=== PATIENT | male | born 1995 | race Caucasian/White ===

== ENCOUNTER 2023-11-15 10:49 | Emergency (ER) | payer MEDICAID ==
[~2023-11-15] VITALS: Ht 185.4 cm; Wt 108.0 kg
[2023-11-15 11:49] VITALS: BP_SYST 170; PULSE 75; RESP 22; TEMP 98.9; O2SAT 99
[2023-11-15 12:23] LABS: BASOPHILS % (AUTO) 0.4 % (0.0-2.0); EOSINOPHILS # (AUTO) 0.1 K/uL (0.0-0.4); EOSINOPHILS % (AUTO) 1.2 % (0.0-4.0); HEMATOCRIT 41.6 % (36-54); HEMOGLOBIN 14.9 g/dL (14.0-18.0); LYMPHOCYTES # (AUTO) 1.4 K/uL (1.0-5.5); LYMPHOCYTES % (AUTO) 24.1 % (20.5-51.5); MEAN CORPUSCULAR HEMOGLOBIN 31 pg (27-31); MEAN CORPUSCULAR HGB CONC 36 % (32-36); MEAN CORPUSCULAR VOLUME 86 fL (79.0-98.0); MONOCYTES # (AUTO) 0.2 K/uL (0.0-1.0); MONOCYTES % (AUTO) 3.8 % (1.7-9.3); NEUTROPHILS % (AUTO) 70.5 % (40.0-70.0); PLATELET COUNT (AUTO) 287 K/uL (130-430); RED BLOOD CELL COUNT(AUTO) 4.84 MIL/uL (4.2-6.2); RED CELL DISTRIBUTION WIDTH 13.1 % (9.0-15.0); WHITE BLOOD COUNT (AUTO) 5.7 K/uL (4.8-10.8)
[2023-11-15 12:39] LABS: CALCIUM 9.5 mg/dL (8.4-11.0); CREATININE 0.84 mg/dL (0.55-1.30); POTASSIUM 4.3 mmol/L (3.5-5.1)
[2023-11-15 12:44] LABS: ALBUMIN 4.2 g/dL (3.4-4.8); TOTAL BILIRUBIN 0.4 mg/dL (0.0-1.0); TOTAL PROTEIN, SERUM 7.8 g/dL (6.4-8.3)
[2023-11-15] MEDS ORDERED: FAMOTIDINE 20 MG TABLET PO ONE (12:45)
[2023-11-15] MEDS ORDERED: ONDANSETRON 4 MG ODT TAB PO ONE (12:45)
[2023-11-15] MEDS ORDERED: MAG-AL HYDROX/SIMETH 30 ML UDC PO ONE (12:45)
[2023-11-15] MEDS ORDERED: KETOROLAC TROMETHAMINE 30 MG VIAL IM ONE (12:45)
[2023-11-15 14:30] LABS: BILIRUBIN,URINE NEGATIVE (NEGATIVE); BLOOD, URINE NEGATIVE (NEGATIVE); CLARITY/URINE CLEAR (CLEAR); COLOR,URINE YELLOW (YELLOW); GLUCOSE,URINE NEGATIVE (NEGATIVE); KETONES,URINE NEGATIVE (NEGATIVE); LEUKOCYTE ESTERASE ,URINE NEGATIVE (NEGATIVE); NITRITE, URINE NEGATIVE (NEGATIVE); PROTEIN URINE TRACE (NEGATIVE); UROBILINOGEN,URINE 0.2 (0.2-1.0)
[2023-11-15 14:40] LABS: BACTERIA,URINE RARE /HPF (None Seen); MUCUS,URINE None Seen /LPF (None Seen); RBC,URINE 0-3 /HPF (0-3); WBC,URINE NONE SEEN /HPF (0-3)
[2023-11-15] MEDS ORDERED: INSU100V52 SUBCUT (14:50)
[2023-11-15] MEDS ORDERED: FAMO20TA8 PO (14:50)
[2023-11-15] MEDS ORDERED: ACET-2634 PO (14:50)
[2023-11-15 15:52] VITALS: BP_SYST 158; PULSE 89; RESP 22; TEMP 98.9; O2SAT 99
== END 2023-11-15 16:25 | disposition home or self-care (01) ==
LOC: SED 10:49
DX: R10.12 Left upper quadrant pain (principal); E11.65 Type 2 diabetes mellitus with hyperglycemia; R73.9 Hyperglycemia, unspecified; R11.0 Nausea; F17.200 Nicotine dependence, unspecified, uncomplicated; E78.5 Hyperlipidemia, unspecified; Z79.899 Other long term (current) drug therapy
CPT/HCPCS: 99284; 80053; 81001; 82150; 83690; 85025; 36415; 96372; 82948; 81000; 81015; Q0162; J1885

== ENCOUNTER 2024-02-03 13:35 | Emergency (ER) | payer MEDICAID ==
[~2024-02-03] VITALS: Ht 185.4 cm; Wt 106.6 kg
[2024-02-03 13:35] VITALS: BP_SYST 131; PULSE 78; RESP 19; TEMP 98; O2SAT 98
[~2024-02-03 13:35] MED LIST: ACET-2634 PO; FAMO20TA8 PO; INSU100V52 SUBCUT
[2024-02-03] MEDS ORDERED: PRED20TA PO (14:29)
[2024-02-03] MEDS ORDERED: ACYC-133 PO (14:29)
[2024-02-03] MEDS ORDERED: TRAM50TA2 PO (14:29)
[2024-02-03] MEDS ORDERED: IBUP-1969 PO (14:29)
[2024-02-03 14:43] VITALS: BP_SYST 131; PULSE 78; RESP 19; TEMP 98; O2SAT 98
== END 2024-02-03 14:36 | disposition home or self-care (01) ==
LOC: SED 13:35
DX: B02.8 Zoster with other complications (principal); E11.9 Type 2 diabetes mellitus without complications; E78.5 Hyperlipidemia, unspecified
CPT/HCPCS: 99283